=== PATIENT | female | born 1945 | race Native Hawaiian/Other Pacific Islander ===

== ENCOUNTER → 2016-09-19 | Outpatient (CLI) | payer MEDICARE ==
--- NOTE | 2016-09-19 15:35 | MRI ---
EXAM DESCRIPTION: MRI right shoulder CLINICAL HISTORY: Shoulder pain. Rotator cuff syndrome. Pain and inability to raise the arm above the head COMPARISON: None. TECHNIQUE: Multiplanar, multisequence MR images of the right shoulder FINDINGS: Severe acromioclavicular osteoarthritis with large osteophytes indenting the supraspinatus. Joint effusion. Small subacromial enthesophyte and tiny inferior lateral acromial spur Full-thickness insertional tear of the supraspinatus tendon with resorptive irregularity and edema horizontal facet greater tuberosity. Full-thickness insertional tear superimposed on diffuse severe tendinosis. Retraction about 9 mm. Muscle volume is mildly decreased with grade 2 fatty infiltration Severe diffuse infraspinatus tendinosis with chronic interstitial partial tear of the entire tendon sparing bursal sided fibers. No tendon retraction. The muscle volume is mildly decreased with grade 1 fatty infiltration Teres minor tendon and muscle are normal. Subscapularis tendinosis and high-grade partial articular and interstitial tear of the upper insertion. Muscle volume is mildly decreased with mild grade 1 fatty streaking Long head biceps tendinosis and high-grade interstitial partial tear of its entire length in the bicipital groove. No normal intra-articular tendon, apparently completely torn and adherent in the groove. Blunted labral anchor and superior labrum with degenerative tear of the superior labrum. A posterior superior glenoid rim cyst measures about 1.2 cm. No high-grade glenohumeral chondrosis or focal osteochondral lesion. Joint effusion and large volume subacromial subdeltoid fluid with synovitis IMPRESSION: Complete insertional tear supraspinatus tendon superimposed on severe diffuse tendinosis Severe diffuse infraspinatus tendinosis and chronic interstitial partial tear High-grade partial articular and interstitial tear of the upper subscapularis tendon. Long head biceps tendinosis and high-grade interstitial tear. Probable complete tear adherent in the bicipital groove Degenerative tear of the labral anchor and superior labrum Joint effusion with large volume subacromial subdeltoid fluid/synovitis Electronically signed by: Fabian Cortes MD 09/19/2016 3:34 PM CDT
== END | disposition home or self-care (01) ==
LOC: MRI 09:36
PROVIDERS: ATTEND Orthopaedic Surgery
DX: M75.101 Unspecified rotator cuff tear or rupture of right shoulder, not specified as traumatic (principal)